=== PATIENT | female | born 1935 | race Caucasian/White ===

== ENCOUNTER 2017-06-15 12:57 | Outpatient (RCR) | payer MEDICARE ==
[~2017-06-15 12:57] MED LIST: ACET-2267 PO; ASP81TEC PO; CITA20TA12 PO; CLOP75TA PO; DIPH1TAB PO; DIPH25TA82 PO; ENAL10TA PO; FURO20TA4 PO; GLIP10TA13 PO; IBUP-15 PO; LOPE1LIQ7 PO; LORA-405 PO; MTF500T PO; MTP25TSR PO; MULT-608 PO; NIAC250T17 PO; NYST15CR TP; NYST15CR3 TP; OMEG1CAP51 PO; SIMV20TA3 PO; VENL150C PO; VERA40TA2 PO
== END 2017-06-15 14:25 | disposition home or self-care (01) ==
PROVIDERS: ATTEND Family Medicine
DX: M62.3 Immobility syndrome (paraplegic) (principal); M25.561 Pain in right knee; M25.562 Pain in left knee; G89.29 Other chronic pain

== ENCOUNTER → 2018-03-08 | Outpatient (CLI) | payer MEDICARE | LOC: CARD 12:22 | PROVIDERS: ATTEND Nurse Practitioner Family | DX: I25.10 Atherosclerotic heart disease of native coronary artery without angina pectoris (principal); I10 Essential (primary) hypertension; E78.5 Hyperlipidemia, unspecified; I27.0 Primary pulmonary hypertension | CPT/HCPCS: 93306 ==

== ENCOUNTER 2018-04-12 16:54 | Emergency (ER) | payer MEDICARE ==
[~2018-04-12] VITALS: Ht 160 cm; Wt 71.2 kg
--- NOTE | 2018-04-12 17:30 | ED Trauma-Multisystem ---
General Chief Complaint: Trauma-Non Activation Stated Complaint: FALL;HEAD INJ History of Present Illness Date Seen by Provider: April 12, 2018 Time Seen by Provider: 17:24 Initial Comments The patient is a 82-year-old female who is brought in by family to the emergency room after a fall this afternoon. She reports she was walking up a step and her house and tripped falling and hitting her head on a desk. She denies LOC neck pain, dizziness, nausea or vomiting, or visual changes. She does have a large hematoma to the right side of her forehead and thought she should just get it checked out. Occurred: This Afternoon Pain/Injury Location: Head Method of Injury: Fall Associated Symptoms (Fall): Denies Symptoms Allergies and Home Medications Allergies Coded Allergies: Penicillins (Unverified Allergy, Unknown, 09/12/15) atorvastatin (Unverified Allergy, Unknown, 09/12/15) Home Medications Acetaminophen 500 Mg Tablet, 500 MG PO Q4H PRN for PAIN, (Reported) Citalopram Hydrobromide 20 Mg Tablet, 20 MG PO DAILY, (Reported) Diphenoxylate HCl/Atropine 1 Each Tablet, 1 TAB PO Q6H PRN for DIARRHEA, ( Reported) Glipizide 10 Mg Tablet, 5 MG PO DAILY, (Reported) TAKES 1/2 (10MG) TABLET Lorazepam 1 Mg Tablet, 1 MG PO Q8H PRN for ANXIETY, (Reported) Metformin Hcl 500 Mg Tablet, 500 MG PO BID, (Reported) Metoprolol Succinate 25 Mg Tab, 25 MG PO BID, (Reported) Multivitamins 1 Tab Tablet, 1 TAB PO DAILY, (Reported) Nystatin 15 Gm Cream..g., TP BID PRN for RASH, (Reported) Purcell-3 Fatty Acids/Fish Oil 1 Each Capsule, 1,000 MG PO BID, (Reported) Patient Home Medication List Home Medication List Reviewed: Yes Review of Systems Constitutional: see HPI Eyes: No Symptoms Reported Ears: No Symptoms Reported Nose: No Symptoms Reported Mouth: No Symptoms Reported Throat: No Symptoms to Report Respiratory: no symptoms reported Cardiovascular: No Symptoms Reported Gastrointestinal: no symptoms reported Genitourinary: no symptoms reported Control/STD Prophylaxis: None Musculoskeletal: no symptoms reported Skin: other Psychiatric/Neurological: No Symptoms Reported Past Zilcpdx-Awddzj-Ceyslk Hx Past Med/Social Hx: Reviewed Nursing Past Med/Soc Hx Patient Social History Recent Foreign Travel: No Contact w/Someone Who Travel: No Immunizations Up To Date Tetanus Booster (TDap): More than 5yrs PED Vaccines UTD: Yes Date of Pneumonia Vaccine: Sep 20, 2015 Date of Influenza Vaccine: Sep 20, 2015 Past Medical History Cardiac, CABG, Gallbladder, Orthopedic Coronary Artery Disease, Hypertension Reproductive Disorders: No Sexually Transmitted Disease: No UTI-Chronic Diabetes, Non-Insulin dep Cataract Skin Anxiety Adverse Reaction/Blood Tranf: No Family Medical History Reviewed Nursing Family Hx Arthritis 19 MOTHER Cardiovascular disease G8 BROTHER G8 BROTHER G8 BROTHER Cataracts Diabetes mellitus G8 BROTHER Myocardial infarction G8 BROTHER G8 BROTHER G8 BROTHER Respiratory disorder 19 MOTHER No Pertinent Family Hx Physical Exam Vital Signs Vital Signs - First Documented 04/12/18 17:19 Pulse 72 Resp 18 B/P (MAP) 173/87 (115) Pulse Ox 98 O2 Delivery Room Air General Appearance: No Apparent Distress, WD/WN Head: Ecchymosis, Other ( hematoma) Ears, Nose, Throat: Hearing Grossly Normal, No Evidence of ENT Injury, No Dental Injury Neck: Full Range of Motion, Normal Inspection, Non Tender, Supple Cardiovascular: Regular Rate, Rhythm, No Edema, No Gallop, No JVD, No Murmur, Normal Peripheral Pulses Respiratory: Chest Non Tender, Lungs Clear, Normal Breath Sounds, No Accessory Muscle Use, No Respiratory Distress Gastrointestinal: Normal Bowel Sounds, No Organomegaly, No Pulsatile Mass, Non Tender, Soft Back: Normal Inspection, No CVA Tenderness, No Vertebral Tenderness Extremity: Normal Capillary Refill, Normal Inspection, Normal Range of Motion, Non Tender, No Calf Tenderness Neurologic/Psychiatric: Alert, Oriented x3, Normal Mood/Affect Skin: Normal Color, Warm/Dry Lymphatic: No Adenopathy Progress/Results/Core Measures Results/Orders My Orders Orders - LEIGHA WIN APRN Ct Head/Cervical Spine Wo (04/12/18 17:23) Vital Signs/I&O 04/12/18 17:19 Pulse 72 Resp 18 B/P (MAP) 173/87 (115) Pulse Ox 98 O2 Delivery Room Air Diagnostic Imaging Diagonstic Imaging: CT Comments NAME: [facility]ST[facility] REC#: [id number] PT STATUS: REG ER : 1935 PHYSICIAN: LEIGHA WIN APRN ADMIT DATE: 04/12/18/ER Draft Date of Exam:04/12/18 CT HEAD/CERVICAL SPINE WO PROCEDURE: CT head and CT cervical spine without contrast. TECHNIQUE: Multiple contiguous axial images were obtained through the brain and cervical spine without the use of intravenous contrast. Sagittal and coronal reformations through the cervical spine were then performed. INDICATION: Status post fall, hematoma to the forehead. CORRELATION STUDY: CT head of 02/18/2016. FINDINGS: CT head: Generalized atrophic changes are again demonstrated with enlargement of the ventricles and prominence of the sulci pattern. Scattered areas of decreased attenuation, while nonspecific, favor likely senescent type changes and/or small vessel ischemic disease. No midline shift or mass effect. No intracranial hemorrhage. A right frontal scalp hematoma is noted with bony calvarium intact. Paranasal sinuses mastoid air cells generally clear. Prominent severity intracranial vascular calcification. CT cervical spine: Reformatted images demonstrate very mild spondylolisthesis of C4 on C5, C5 on C6 and C6 on C7. Alignment otherwise relatively anatomic. Vertebral body heights are well maintained. There is no evidence for an acute fracture. Mild to moderate multilevel cervical spondylosis with disc space narrowing. Osteophyte formation at the C3-C4 level does result in mild foraminal narrowing. Posterior elements demonstrate asymmetric areas of hypertrophic facet arthropathy but are intact. Odontoid intact. Visualized lung apices are unremarkable. Prominent calcification of the carotid bifurcations. IMPRESSION: 1. CT head: Right frontal scalp hematoma. Negative for acute traumatic intracranial abnormality. 2. CT cervical spine: Negative for acute fracture or traumatic subluxation. Advanced multilevel cervical spondylosis with hypertrophic facet arthropathy. Dictated on workstation # [id number] Dict: 04/12/18 1759 Trans: 04/12/18 1811 [facility] [id number] Interpreted by: SHITAL PITTMAN DO Electronically signed by: Departure Impression Primary Impression: Scalp contusion Disposition: 01 HOME, SELF-CARE Condition: Stable Departure-Patient Inst. Decision time for Depature: 18:20 Referrals: JACOB SMALL MD (PCP/Family) Primary Care Physician Patient Instructions: Contusion (DC) Add. Discharge Instructions: 1. Return to ER for any confusion severe headache nausea vomiting or other concerns.All discharge instructions reviewed with patient and/or family. Voiced understanding. LEIGHA WIN APRN April 12, 2018 17:30
--- NOTE | 2018-04-12 18:12 | Diagnostic Imaging Report ---
PROCEDURE: CT head and CT cervical spine without contrast. TECHNIQUE: Multiple contiguous axial images were obtained through the brain and cervical spine without the use of intravenous contrast. Sagittal and coronal reformations through the cervical spine were then performed. INDICATION: Status post fall, hematoma to the forehead. CORRELATION STUDY: CT head of 02/18/2016. FINDINGS: CT head: Generalized atrophic changes are again demonstrated with enlargement of the ventricles and prominence of the sulci pattern. Scattered areas of decreased attenuation, while nonspecific, favor likely senescent type changes and/or small vessel ischemic disease. No midline shift or mass effect. No intracranial hemorrhage. A right frontal scalp hematoma is noted with bony calvarium intact. Paranasal sinuses mastoid air cells generally clear. Prominent severity intracranial vascular calcification. CT cervical spine: Reformatted images demonstrate very mild spondylolisthesis of C4 on C5, C5 on C6 and C6 on C7. Alignment otherwise relatively anatomic. Vertebral body heights are well maintained. There is no evidence for an acute fracture. Mild to moderate multilevel cervical spondylosis with disc space narrowing. Osteophyte formation at the C3-C4 level does result in mild foraminal narrowing. Posterior elements demonstrate asymmetric areas of hypertrophic facet arthropathy but are intact. Odontoid intact. Visualized lung apices are unremarkable. Prominent calcification of the carotid bifurcations. IMPRESSION: 1. CT head: Right frontal scalp hematoma. Negative for acute traumatic intracranial abnormality. 2. CT cervical spine: Negative for acute fracture or traumatic subluxation. Advanced multilevel cervical spondylosis with hypertrophic facet arthropathy. Dictated by: Dictated on workstation # [id number]
[2018-04-12 18:42] VITALS: BP 178/108
== END 2018-04-12 18:41 | disposition home or self-care (01) ==
LOC: EDUNIT# 16:54 → ER 16:55
DX: S00.03XA Contusion of scalp, initial encounter (principal); I25.10 Atherosclerotic heart disease of native coronary artery without angina pectoris; I10 Essential (primary) hypertension; E11.9 Type 2 diabetes mellitus without complications; F41.9 Anxiety disorder, unspecified; Z82.49 Family history of ischemic heart disease and other diseases of the circulatory system; Z87.440 Personal history of urinary (tract) infections; Z88.0 Allergy status to penicillin; Z88.8 Allergy status to other drugs, medicaments and biological substances; Z79.84 Long term (current) use of oral hypoglycemic drugs; Z95.1 Presence of aortocoronary bypass graft; W10.9XXA Fall (on) (from) unspecified stairs and steps, initial encounter; W22.09XA Striking against other stationary object, initial encounter; Y92.009 Unspecified place in unspecified non-institutional (private) residence as the place of occurrence of the external cause
CPT/HCPCS: 70450; 72125

== ENCOUNTER 2019-11-14 09:15 | Emergency (ER) | payer MEDICARE ==
[~2019-11-14] VITALS: Ht 157 cm; Wt 63.0 kg
--- NOTE | 2019-11-14 10:25 | ED Fall/Injury ---
General Chief Complaint: Trauma-Non Activation Stated Complaint: FELL Nursing Triage Note: ARRIVED VIA WC WITH COMPLAINTS OF FALLING ONTO RIGHT SIDE ON SAT AFTER MISSING A STEP. UNKNOWN LOC. COMPLAINS OF LOWER RIGHT SIDED BACK AND HIP PAIN. Source: patient, family Exam Limitations: clinical condition (early dementia as reported by family ) (FRANCISCO BLACKMAN,MED STUDENT) History of Present Illness Date Seen by Provider: Nov 14, 2019 Time Seen by Provider: 10:04 Initial Comments Pt presents to ED with family for CC of traumatic fall. Fall occurred at approximately 2030 on 11/09/2019 while pt was walking down two steps down a landing to take out garbage. Pt fell backwards onto right hip and elbow, states she did not lose consciousness but was unable to get up without assistance from . Pt lives with in their private residence and uses a walker to ambulate. Pt did not follow up fall until today because she experienced two days of muscle weakness and was unable to transfer or ambulate even with walker. Pt notes she has had double vision for the past two days as well. Past medical history is notable for brain bleed 5 years ago and early dementia. Occurred: last week Severity: mild Injuries/Pain Location: upper extremity (R elbow ), back, lower extremity (R) Context: slipped Loss of Consciousness: no loss of consciousness Modifying Factors: Worse With Movement Associated Symptoms (Fall): No Abdominal Pain, No Chest Pain, No Confusion, No Dizziness; Headache; No Lightheadedness, No Nausea/Vomiting, No Neck Pain, No Shortness of Air; Trouble Walking (FRANCISCO BLACKMAN,MED STUDENT) Allergies and Home Medications Allergies Coded Allergies: Penicillins (Unverified Allergy, Unknown, 09/12/15) atorvastatin (Unverified Allergy, Unknown, 09/12/15) Home Medications Acetaminophen 500 Mg Tablet, 500 MG PO Q4H PRN for PAIN, (Reported) Citalopram Hydrobromide 20 Mg Tablet, 20 MG PO DAILY, (Reported) Diphenoxylate HCl/Atropine 1 Each Tablet, 1 TAB PO Q6H PRN for DIARRHEA, (Reported) Glipizide 10 Mg Tablet, 5 MG PO DAILY, (Reported) TAKES 1/2 (10MG) TABLET Lorazepam 1 Mg Tablet, 1 MG PO Q8H PRN for ANXIETY, (Reported) Metformin Hcl 500 Mg Tablet, 500 MG PO BID, (Reported) Metoprolol Succinate 25 Mg Tab, 25 MG PO BID, (Reported) Multivitamins 1 Tab Tablet, 1 TAB PO DAILY, (Reported) Nystatin 15 Gm Cream..g., TP BID PRN for RASH, (Reported) [place]-3 Fatty Acids/Fish Oil 1 Each Capsule, 1,000 MG PO BID, (Reported) Patient Home Medication List Home Medication List Reviewed: Yes (FRANCISCO BLACKMAN MED STUDENT) Home Medication List Reviewed: Yes (ENIO ARRINGTON MD) Review of Systems Review of Systems Constitutional: No chills, No dizziness, No fever Eyes: Blurred Vision (double vision beginning two days ago ); Denies Pain Ears, Nose, Mouth, Throat: denies ear pain, denies nose pain, denies mouth pain, denies throat pain Respiratory: No cough, No dyspnea on exertion, No short of breath Cardiovascular: No chest pain, No palpitations Gastrointestinal: No abdominal pain, No constipation, No diarrhea, No dysphagia, No nausea, No vomiting Genitourinary: No discharge; incontinence (urge); No pain Musculoskeletal: back pain; No joint pain Skin: No lesions, No lumps, No rash Psychiatric/Neurological: Denies Anxiety, Denies Depressed (FRANCISCO BLACKMAN MED STUDENT) All Other Systems Reviewed Negative Unless Noted: Yes (ENIO ARRINGTON MD) Past Duslwoc-Ywbnww-Qfmlyd Hx Past Med/Social Hx: Reviewed Nursing Past Med/Soc Hx (ENIO ARRINGTON MD) Patient Social History Alcohol Use: Denies Use Recreational Drug Use: No Smoking Status: Never a Smoker 2nd Hand Smoke Exposure: No Recent Foreign Travel: No Contact w/Someone Who Travel: No Recent Infectious Disease Expo: No Recent Hopitalizations: No (FRANCISCO BLACKMAN MED STUDENT) Immunizations Up To Date Tetanus Booster (TDap): More than 5yrs PED Vaccines UTD: Yes Date of Pneumonia Vaccine: Sep 20, 2015 Date of Influenza Vaccine: Sep 20, 2015 (FRANCISCO BLACKMAN MED STUDENT) Past Medical History Surgeries: Yes (BILATERAL KNEE, Gallstones, stents, 5 vessel CABG) Cardiac, CABG, Eye Surgery, Gallbladder, Orthopedic Respiratory: No Cardiac: Yes (TACHYCARDIA/BYPASS X5 1999) Coronary Artery Disease, Hypertension Neurological: Yes Dementia Reproductive Disorders: No Sexually Transmitted Disease: No Genitourinary: Yes UTI-Chronic Gastrointestinal: Yes (hx of ulcers ) Chronic Diarrhea Musculoskeletal: Yes Arthritis Endocrine: Yes Diabetes, Non-Insulin dep HEENT: Yes Cataract Cancer: Yes Skin What Type of Treatment Did You: Surgical Intervention Psychosocial: Yes Anxiety, Depression Integumentary: No Blood Disorders: No Adverse Reaction/Blood Tranf: No (FRANCISCO BLACKMAN,MED STUDENT) Family Medical History Reviewed Nursing Family Hx (ENIO ARRINGTON MD) Arthritis 19 MOTHER Cardiovascular disease G8 BROTHER G8 BROTHER G8 BROTHER Cataracts Diabetes mellitus G8 BROTHER Myocardial infarction G8 BROTHER G8 BROTHER G8 BROTHER Respiratory disorder 19 MOTHER No Pertinent Family Hx (FRANCISCO BLACKMAN MED STUDENT) Physical Exam Vital Signs Vital Signs - First Documented 11/14/19 09:30 Temp 37.0 Pulse 89 Resp 16 B/P (MAP) 154/81 (105) Pulse Ox 95 O2 Delivery Room Air (ENIO ARRINGTON MD) Vital Signs Capillary Refill : Less Than 3 Seconds (FRANCISCO BLACKMAN,MED STUDENT) Height, Weight, BMI Height: 5'3.00" Weight: 157lbs. 0.0oz. 71.131140ex; 25.00 BMI Method:Stated General Appearance: WD/WN, no apparent distress HEENT: PERRL/EOMI, normal ENT inspection, TMs normal, pharynx normal Neck: non-tender, supple Cardiovascular: regular rate, rhythm, no edema, no gallop, no murmur Respiratory: chest non-tender, lungs clear, normal breath sounds, no respiratory distress, no accessory muscle use Peripheral Pulses: 2+ Dorsalis Pedis (R), 2+ Left Dors-Pedis (L), 2+ Radial Pulses (R), 2+ Radial Pulses (L) Gastrointestinal: non tender, soft, mass (palpable, moveable 2cm mass RUQ, not tender to palpation ) Back: normal inspection, no CVA tenderness, no vertebral tenderness Extremities: no calf tenderness, normal capillary refill, pelvis stable; No swelling; other (hematoma on lateral side of R knee, small healing laceration to R elbow ) Neurologic/Psychiatric: alert, normal mood/affect, oriented x 3, abnormal career based intervention coordinator II-XII (decreased hearing acuity in R ear, otherwise CN normal ) Skin: normal color, warm/dry Lymphatic: no adenopathy (anterior/posterior cervical, b/l axillary ) (FRANCISCO BLACKMAN,MED STUDENT) General Appearance: WD/WN, no apparent distress Neck: non-tender, supple Cardiovascular: regular rate, rhythm, no murmur Respiratory: lungs clear, normal breath sounds Gastrointestinal: soft Extremities: pelvis stable, other (hematoma on lateral side of R knee, small healing laceration to R elbow . Mild pain noted on external rotation of the right hip at the hip joint. No deformity. No shortening or rotation noted.) Skin: warm/dry, ecchymosis (right knee and right elbow) (ENIO ARRINGTON MD) Aurea Coma Score Best Eye Response: (4) Open Spontaneously Best Verbal Response: (5) Oriented Best Motor Response: (6) Obeys Commands (ENIO ARRINGTON MD) Progress/Results/Core Measures Results/Orders My Orders Orders - ENIO ARRINGTON MD Ct Head Wo (11/14/19 10:36) Ct Lumbar Spine Wo (11/14/19 10:36) Pelvis With Right Hip 2-3views (11/14/19 10:36) (ENIO ARRINGTON MD) Vital Signs/I&O 11/14/19 09:30 Temp 37.0 Pulse 89 Resp 16 B/P (MAP) 154/81 (105) Pulse Ox 95 O2 Delivery Room Air (ENIO ARRINGTON MD) Blood Pressure Mean: 105 Progress Progress Note : Time: 10:36 Progress Note Seen and evaluated. Ordered CT of head, lumbar spine and pelvis. Will evaluate for acute bleeding/traumatic fractures. Discussed abdominal findings with pt and family and family in room is aware of abnormality, have previously discussed it with pt's primary care physician and do not wish to pursue work up at this time. (FRANCISCO BLACKMAN,MED STUDENT) Progress Note : Progress Note I have seen and evaluated the patient and agree with above except as indicated. I have directed the plan of care. Patient is here with complaint of low back pain and right hip pain after fall a few days ago. She worsened over the last 2 days requiring the visit. Family was concerned about fracture or other problems and brought her in for evaluation. Patient does not have much complaint and states that her low back and right hip are hurting a little. On examination, noted findings as above. I agree with the question of a masslike object to the right side of the abdomen. This was discussed with the family. This has apparently been noted previously but they are electing to not pursue that and so neither will we. They agree. We will get CT of the head as well as CT of the lumbar spine and x-ray of the right hip and pelvis. Monitor patient. 1140: Right hip and pelvis x-ray reviewed by Dr. Phipps. Acetabular fracture noted. He states this is nonoperative and patient may do toe-touch weightbearing on that side. Pending other CT findings. 1209: CT complete. All findings reviewed with patient and family. I will give prescription for physical therapy for eval and treatment with the toe-touch weightbearing and evaluation for assistive devices and walker training. I will send a copy of the chart to Dr. Dockery and Dr. Phipps. Discussed with family about follow-up. Discharged home with return precautions. Patient and family verbalize understanding instructions and agreement with plan. She has both a walker and wheelchair at home for use. (ENIO ARRINGTON MD) Diagnostic Imaging Diagonstic Imaging: CT Plain Films/CT/US/NM/MRI: head Comments [place], [place] NAME: SEBASTIAN JANE [facility] REC#: [id number] PT STATUS: REG ER : 1935 PHYSICIAN: ENIO ARRINGTON MD ADMIT DATE: 11/14/19/ER Draft Date of Exam:11/14/19 CT HEAD WO CLINICAL INDICATION: Patient complains of falling onto the right side on Monday after missing a step. Unknown if there was loss of consciousness. Patient complains of right lower sided back and hip pain. EXAM: Axial CT scan of the brain performed without IV contrast. Auto Exposure Controls were utilized during the CT exam to meet ALARA standards for radiation dose reduction. COMPARISON: Head CT without contrast dated 04/12/2018. FINDINGS: There is no evidence of acute cerebral infarct, intracranial hemorrhage, or gross mass effect. There is progression of diffuse brain parenchymal volume loss. There is slight progression of focal and patchy areas of low-attenuation white matter changes involving both cerebral hemispheres likely representing chronic small vessel ischemic disease and leukoaraiosis. There is normal crews-white matter distinction. There is no significant midline shift or herniation. There is no evidence of hydrocephalus. The basal cisterns are unremarkable. The skull, extracranial soft tissue, and orbits are unremarkable. The paranasal sinuses are unremarkable. Temporal bones show no significant abnormality. IMPRESSION: 1: There is no CT evidence of acute intracranial process. There is no intracranial hemorrhage or skull fracture. 2: Interval progression of chronic small vessel ischemic disease and diffuse brain parenchymal volume loss. Dictated on workstation # [id number] Dict: 11/14/19 1124 Trans: 11/14/19 1137 [id number] Interpreted by: DENISE LEE MD Electronically signed by: Diagonstic Imaging: CT Plain Films/CT/US/NM/MRI: other Comments [facility] [place], [place] NAME: SEBASTIAN JANE [facility] REC#: [id number] PT STATUS: REG ER : 1935 PHYSICIAN: ENIO ARRINGTON MD ADMIT DATE: 11/14/19/ER Draft Date of Exam:11/14/19 CT LUMBAR SPINE WO PROCEDURE: CT lumbar spine without contrast. TECHNIQUE: Multiple contiguous axial images were obtained through the lumbar spine without the use of intravenous contrast. Sagittal and coronal reformations were then performed. Auto Exposure Controls were utilized during the CT exam to meet ALARA standards for radiation dose reduction. INDICATION: Recent fall, complaining of low right-sided back pain and hip pain. COMPARISON: Correlation is made with prior MRI of the lumbar spine from 12/11/2015. FINDINGS: Curvature and alignment of the lumbar spine is normal. There is a chronic compression fracture deformity involving the L4 vertebral body, similar to exam from 2016. Remaining lumbar vertebrae demonstrate normal stature. There is severe multilevel degenerative disc disease with variable disc space narrowing and marginal spurring as well as multilevel vacuum disc phenomena. There is also significant multilevel hypertrophic facet degenerative change. No acute fracture is identified. The aorta is calcified but non-aneurysmal. No paraspinous hematoma is identified. There does appear to be a large cyst in the upper pole of the left kidney. There is also a nonobstructing calculus in the upper pole of the right kidney. Sigmoid diverticulosis is noted. IMPRESSION: 1. Severe lumbar spondylosis and facet arthropathy as well as chronic compression deformity of the L4 vertebral body. No acute fracture is detected. 2. Left upper pole renal cyst and right-sided nonobstructing renal calculus. Dictated on workstation # [id number] Dict: 11/14/197 Trans: 11/14/19 1135 [id number] Interpreted by: JUNE ACOSTA MD Electronically signed by: Diagonsmoe Imaging: Xray Plain Films/CT/US/NM/MRI: pelvis, hip Comments [facility] [place], [place] NAME: SEBASTIAN JANE [facility] REC#: [id number] PT STATUS: REG ER : 1935 PHYSICIAN: ENIO ARRINGTON MD ADMIT DATE: 11/14/19/ER Draft Date of Exam:11/14/19 PELVIS WITH RIGHT HIP 2-3VIEWS INDICATION: Right hip injury. AP view of the pelvis and two views of the right hip are obtained. FINDINGS: There is a fracture through the medial wall of the pelvic ring in the ilium extending towards the acetabular ceiling. The femur appears to be intact. The remainder of the pelvic ring is unremarkable. IMPRESSION: Vertically oriented fracture extending from the medial wall of the pelvis through the right superior acetabulum. Dictated on workstation # [id number] Dict: 11/14/191126 Trans: 11/14/19 1141 [id number] Interpreted by: ENIO PRIETO MD Electronically signed by: (ENIO ARRINGTON MD) Departure Impression Primary Impression: Right acetabular fracture Qualified Codes: S32.401A - Unspecified fracture of right acetabulum, initial encounter for closed fracture Disposition: 01 HOME, SELF-CARE Condition: Stable Departure-Patient Inst. Decision time for Depature: 11:46 (ENIO ARRINGTON MD) Referrals: JACOB DOCKERY MD (PCP/Family) Primary Care Physician Patient Instructions: Pelvic Fracture (DC) Add. Discharge Instructions: All discharge instructions reviewed with patient and/or family. Voiced understanding. You have a fracture of the acetabulum of the right hip (bony portion of the pelvis). You also have chronic compression fractures of your lumbar spine. You may take Tylenol/acetaminophen 650 mg every 6-8 hours as needed for pain. Take other pain medication as prescribed. You should follow-up with physical therapy for evaluation. You may do weight bearing with toe-touch only to the right leg for the next several weeks until cleared by orthopedist. Return for worse pain, weakness or other concerns as needed. Scripts Tramadol HCl (Tramadol HCl) 50 Mg Tablet 50 MG PO Q6H PRN for PAIN for 5 Days, #20 TAB 0 Refills Prov: ENIO ARRINGTON MD 11/14/19 Copy Copies To 1: JACOB DOCKERY MD Copies To 2: FELIPE PHIPPS MD, DREW,MED STUDENT Nov 14, 2019 10:24 ENIO ARRINGTON MD Nov 14, 2019 11:45
--- NOTE | 2019-11-14 11:35 | Diagnostic Imaging Report ---
PROCEDURE: CT lumbar spine without contrast. TECHNIQUE: Multiple contiguous axial images were obtained through the lumbar spine without the use of intravenous contrast. Sagittal and coronal reformations were then performed. Auto Exposure Controls were utilized during the CT exam to meet ALARA standards for radiation dose reduction. INDICATION: Recent fall, complaining of low right-sided back pain and hip pain. COMPARISON: Correlation is made with prior MRI of the lumbar spine from 12/11/2015. FINDINGS: Curvature and alignment of the lumbar spine is normal. There is a chronic compression fracture deformity involving the L4 vertebral body, similar to exam from 2016. Remaining lumbar vertebrae demonstrate normal stature. There is severe multilevel degenerative disc disease with variable disc space narrowing and marginal spurring as well as multilevel vacuum disc phenomena. There is also significant multilevel hypertrophic facet degenerative change. No acute fracture is identified. The aorta is calcified but non-aneurysmal. No paraspinous hematoma is identified. There does appear to be a large cyst in the upper pole of the left kidney. There is also a nonobstructing calculus in the upper pole of the right kidney. Sigmoid diverticulosis is noted. IMPRESSION: 1. Severe lumbar spondylosis and facet arthropathy as well as chronic compression deformity of the L4 vertebral body. No acute fracture is detected. 2. Left upper pole renal cyst and right-sided nonobstructing renal calculus. Dictated by: Dictated on workstation # [id number]
--- NOTE | 2019-11-14 11:35 | NUR ---
RESTING IN BED ET DENIES NEEDS AT THIS TIME
--- NOTE | 2019-11-14 11:37 | Diagnostic Imaging Report ---
CLINICAL INDICATION: Patient complains of falling onto the right side on Monday after missing a step. Unknown if there was loss of consciousness. Patient complains of right lower sided back and hip pain. EXAM: Axial CT scan of the brain performed without IV contrast. Auto Exposure Controls were utilized during the CT exam to meet ALARA standards for radiation dose reduction. COMPARISON: Head CT without contrast dated 04/12/2018. FINDINGS: There is no evidence of acute cerebral infarct, intracranial hemorrhage, or gross mass effect. There is progression of diffuse brain parenchymal volume loss. There is slight progression of focal and patchy areas of low-attenuation white matter changes involving both cerebral hemispheres likely representing chronic small vessel ischemic disease and leukoaraiosis. There is normal crews-white matter distinction. There is no significant midline shift or herniation. There is no evidence of hydrocephalus. The basal cisterns are unremarkable. The skull, extracranial soft tissue, and orbits are unremarkable. The paranasal sinuses are unremarkable. Temporal bones show no significant abnormality. IMPRESSION: 1: There is no CT evidence of acute intracranial process. There is no intracranial hemorrhage or skull fracture. 2: Interval progression of chronic small vessel ischemic disease and diffuse brain parenchymal volume loss. Dictated by: Dictated on workstation # [id number]
--- NOTE | 2019-11-14 11:41 | Diagnostic Imaging Report ---
INDICATION: Right hip injury. AP view of the pelvis and two views of the right hip are obtained. FINDINGS: There is a fracture through the medial wall of the pelvic ring in the ilium extending towards the acetabular ceiling. The femur appears to be intact. The remainder of the pelvic ring is unremarkable. IMPRESSION: Vertically oriented fracture extending from the medial wall of the pelvis through the right superior acetabulum. Dictated by: Dictated on workstation # [id number]
[2019-11-14] MEDS ORDERED: TRAM50TA2 PO (12:14)
--- NOTE | 2019-11-14 12:30 | NUR ---
ASSISTED TO BATH ROOM.
[2019-11-14 12:36] VITALS: BP 137/70
== END 2019-11-14 12:36 | disposition home or self-care (01) ==
LOC: EDUNIT# 09:15 → ER 09:17
DX: S32.401A Unspecified fracture of right acetabulum, initial encounter for closed fracture (principal); I10 Essential (primary) hypertension; E11.9 Type 2 diabetes mellitus without complications; F41.9 Anxiety disorder, unspecified; F32.9 Major depressive disorder, single episode, unspecified; I25.10 Atherosclerotic heart disease of native coronary artery without angina pectoris; F03.90 Unspecified dementia, unspecified severity, without behavioral disturbance, psychotic disturbance, mood disturbance, and anxiety; R40.2142 Coma scale, eyes open, spontaneous, at arrival to emergency department; R40.2252 Coma scale, best verbal response, oriented, at arrival to emergency department; R40.2362 Coma scale, best motor response, obeys commands, at arrival to emergency department; Z85.828 Personal history of other malignant neoplasm of skin; Z87.440 Personal history of urinary (tract) infections; Z88.0 Allergy status to penicillin; Z88.8 Allergy status to other drugs, medicaments and biological substances; Z79.84 Long term (current) use of oral hypoglycemic drugs; Z95.1 Presence of aortocoronary bypass graft; Z82.49 Family history of ischemic heart disease and other diseases of the circulatory system; W10.9XXA Fall (on) (from) unspecified stairs and steps, initial encounter
CPT/HCPCS: 70450; 72131